=== PATIENT | female | born 1940 | race Caucasian/White ===

== ENCOUNTER 2016-09-13 11:16 | Inpatient (IN) | payer MEDICARE ==
[2016-09-13] VITALS (9 sets, daily range): BP systolic 130–180; BP diastolic 58–76; PULSE 86–100; RESP 18–30; TEMP 97.3–98.3; O2SAT 96–98
[~2016-09-13] VITALS: Ht 154.9 cm; Wt 68.7 kg
[~2016-09-13 11:16] MED LIST: ALBU17I INH; ALPR.25 PO; ASPI81 PO; CALCTAB23 PO; CENTTAB9 PO; CLON.1 PO; CO Q100C7 PO; COZA50TA PO; DEXA2TAB10 PO; LEVE500 PO; LEVEMIR SQ; NEUR300C PO; NIFE15TA PO; SERT100 PO; SYMB160A INH; TIOT18I INH; VITA200017 PO
[2016-09-13] MEDS ORDERED: SODIUM CHLOR 0.9% 1000 ML INJ 1,000 ML IV SCH ×3 (11:28→12:36)
[2016-09-13] MEDS ORDERED: ONDANSETRON HCL 4 MG/2 ML VIAL IVP ONE (11:30)
[2016-09-13] MEDS ORDERED: INSULIN HUMAN REGULAR 1,000 UNITS/10 ML VIAL SQ ONE (11:30)
--- NOTE | 2016-09-13 11:50 | PD ---
HPI Chief Complaint: Diabetic Time Seen by Provider: 11:46 Travel History International Travel<30 days: No Contact w/Intl Traveler<30days: No Traveled to known affect area: No History of Present Illness HPI 76-year-old female that presents to the ED for evaluation of hyperglycemia. Patient apparently has been having some problems with her sugars. She has had DKA in the past. Per patient she's been feeling weak and tired and they have monitor her sugars and is being in the high 500s since yesterday. Patient has been given her insulin with minimal improvement of the sugars. She states that she feels nauseous and she has polyuria and dysuria. She does have a history of lung cancer with tumor to the brain as well. Per patient she was supposed to follow yesterday with the oncologist for this for a recheck but apparently she never did. She denies any abdominal pain or chest pain. She states that she does feel weak. She feels very thirsty. She feels dizzy and lightheaded. No blurred vision or double vision. Allergies to Fosamax and statins. She denies any headache at this time. She denies any other medical prongs. Patient was given fluids IV in the ambulance. She comes from home. She feels nauseous but she has not thrown up. PFSH Past Medical History Arthritis: Yes Anxiety: Yes Depression: Yes Cancer: Yes (MALIGNANT LUNG MASS) Cardiovascular Problems: No Chemotherapy: Yes (R/T BRAIN TUMOR) COPD: Yes Diabetes: Yes (INSULIN-CONTROLLED) Patient Takes Glucophage: No Diminished Hearing: No Endocrine: Yes GERD: Yes Glaucoma: No Genitourinary: No Headaches: Yes Hepatitis: No Hiatal Hernia: No Hypertension: Yes Immune Disorder: No Medical other: Yes (GERD; ) Musculoskeletal: Yes (ARTHRITIS) Neurologic: Yes (OCCAS HEADACHE ) Psychiatric: Yes (DEPRESSION & ANXIETY ) Respiratory: Yes Immunizations Current: No Radiation Therapy: Yes Thyroid Disease: No Tetanus Vaccination: > 5 Years Influenza Vaccination: Yes Past Surgical History Abdominal Surgery: No AICD: No Body Medical Devices: NONE EXCEPT LENS LEFT EYE ONLY Cardiac Surgery: No Ear Surgery: No Eye Surgery: Yes (LEFT EYE SURGERY) Genitourinary Surgery: No Gynecologic Surgery: No Joint Replacement: No Oral Surgery: Yes (TONSILLECTOMY) Pacemaker: No Thoracic Surgery: Yes (LUNG BIOPSY X 2 , L PARTIAL LOBECTOMY) Tonsillectomy: Yes Other Surgery: Yes (DENTAL SX; COLONOSCOPY ;T&A) Social History Alcohol Use: Yes (SOCIALLY) Tobacco Use: No (quit 2005) Substance Use: No Allergies-Medications (Allergen,Severity, Reaction): Coded Allergies: Fosamax (Verified Allergy, Severe, GI BLEED, 09/13/16) Uncoded Allergies: STATINS (Allergy, Severe, BONE PAIN, 12/23/12) Reported Meds & Prescriptions Reported Meds & Active Scripts Active Levemir Inj (Insulin Detemir) 1,000 unit/ 10 ML Vial 12 Units SQ HS 30 Days Levemir Inj (Insulin Detemir) 1,000 unit/ 10 ML Vial 30 Units SQ DAILY 30 Days Catapres (Clonidine) 0.1 Mg Tab 0.1 Mg PO Q12HR hold for sbp less 120 Xanax (Alprazolam) 0.25 Mg Tab 0.25 Mg PO BID PRN Decadron 2 mg (Dexamethasone) 2 Mg Tab 1 Tab PO Q8HR 30 Days Keppra (Levetriacetam) 500 Mg Tab 500 Mg PO Q12HR 30 Days Symbicort (Budesonide/Formoterol Fumarate) 160 Mcg/4.5 Mcg Aer 2 Puff INH Q12HR 30 Days Reported Vitamin D3 Super Strength (Cholecalciferol) 2,000 Unit Chw 2,000 Units PO DAILY Ventolin Hfa (Albuterol Sulfate) 108 Mcg/Act Aer 1 Puff INH Q4HR PRN Co [id number] M1 100 Mg Cap 100 Mg PO DAILY Calcium 500 + D+D +D Tab 1 Tab PO BID Spiriva 18 Mcg18 Mcg 18 Mcg Inhp 1 Cap INH DAILY Do Not Swallow Capsule Centrum (Multivitamins) Tab 1 Tab PO DAILY Aspirin 81 Mg Tab 81 Mg PO DAILY Review of Systems Except as stated in HPI: all other systems reviewed are Neg Physical Exam Narrative GENERAL: SKIN: Warm and dry. HEAD: Atraumatic. Normocephalic. EYES: Pupils equal and round 4 mm reactive to light and accomodation. No scleral icterus. No injection or drainage. ENT: No nasal bleeding or discharge. Mucous membranes pink and moist. Tongue is midline. No uvula deviation. NECK: Trachea midline. No JVD. CARDIOVASCULAR: Regular rate and rhythm. No murmurs, S3, S4. RESPIRATORY: No accessory muscle use. Clear to auscultation. Breath sounds equal bilaterally. GASTROINTESTINAL: Abdomen soft, non-tender, nondistended. Hepatic and splenic margins not palpable. MUSCULOSKELETAL: Extremities without clubbing, cyanosis, or edema. No obvious deformities. Full range of motion of the upper and lower extremities bilaterally. 2+ pulses bilaterally. NEUROLOGICAL: Awake and alert. No obvious cranial nerve deficits. Motor grossly within normal limits. Five out of 5 muscle strength in the arms and legs. Normal speech. PSYCHIATRIC: Appropriate mood and affect; insight and judgment normal. Data Data Last Documented VS Vital Signs Date Time Temp Pulse Resp B/P Pulse Ox O2 Delivery O2 Flow Rate FiO2 09/13/16 11:16 92 20 98 Nasal Cannula 2 09/13/16 11:16 98.1 180/72 Orders Electrocardiogram (09/13/16 11:28) Complete Blood Count With Diff (09/13/16 11:28) Ckmb (Isoenzyme) Profile (09/13/16 11:28) Troponin I (09/13/16 11:28) Urinalysis - C+S If Indicated (09/13/16 11:28) Cath For Specimen (09/13/16 11:28) Magnesium (Mg) (09/13/16 11:28) Thyroid Stimulating Hormone (09/13/16 11:28) Chest, Single Ap (09/13/16 11:28) Iv Access Insert/Monitor (09/13/16 11:28) Ecg Monitoring (09/13/16 11:28) Oximetry (09/13/16 11:28) Comprehensive Metabolic Panel (09/13/16 11:28) Lipase (09/13/16 11:28) Lactic Acid (09/13/16 11:28) Ondansetron Inj (Zofran Inj) (09/13/16 11:30) Sodium Chlor 0.9% 1000 Ml Inj (Ns 1000 M (09/13/16 11:28) Insulin Human Regular Inj (Novolin R Inj (09/13/16 11:30) Beta Hydroxybutyrate (Acetone) (09/13/16 11:39) Blood Gas Venous (Vbg) (09/13/16 11:39) Urine Culture (09/13/16 11:25) Sodium Chlor 0.9% 1000 Ml Inj (Ns 1000 M (09/13/16 12:36) ^ Scrap Breaker / Telemetry (09/13/16 12:36) ^ Insert Iv (09/13/16 12:36) Diet Npo (09/13/16 Lunch) Sodium Chlor 0.9% 1000 Ml Inj (Ns 1000 M (09/13/16 12:36) Dext 5%-Nacl 0.9% 1000 Ml Inj (D5w-Ns 10 (09/13/16 12:36) Insulin Regular (Iv Infusion) (Novolin R (09/13/16 12:45) Potassium Chlor 40 Meq Premix (Kcl 40 Me (09/13/16 12:45) Potassium Chlor 40 Meq Premix (Kcl 40 Me (09/13/16 12:45) Potassium Chlor 20 Meq Premix (Kcl 20 Me (09/13/16 12:45) Potassium Chlor 20 Meq Premix (Kcl 20 Me (09/13/16 12:45) Potassium Chlor 20 Meq Premix (Kcl 20 Me (09/13/16 12:45) Potassium Chlor 20 Meq Premix (Kcl 20 Me (09/13/16 12:45) Potassium Chlor 20 Meq Premix (Kcl 20 Me (09/13/16 12:45) Potassium Chlor 20 Meq Premix (Kcl 20 Me (09/13/16 12:45) Sodium Bicarbonate 8.4% Inj (Sodium Bica (09/13/16 12:45) Sodium Bicarbonate 8.4% Inj (Sodium Bica (09/13/16 12:45) Sodium Phosphate Inj (Sodium Phosphate I (09/13/16 12:45) Hemoglobin (Hgb) A1c (09/13/16 12:36) Basic Metabolic Panel (Bmp) (09/13/16 17:36) Basic Metabolic Panel (Bmp) (09/13/16 23:36) Basic Metabolic Panel (Bmp) (09/14/16 05:36) Basic Metabolic Panel (Bmp) (09/14/16 11:36) Magnesium (Mg) (09/13/16 17:36) Magnesium (Mg) (09/13/16 23:36) Magnesium (Mg) (09/14/16 05:36) Magnesium (Mg) (09/14/16 11:36) Phosphorus (Po4) (09/13/16 17:36) Phosphorus (Po4) (09/13/16 23:36) Phosphorus (Po4) (09/14/16 05:36) Phosphorus (Po4) (09/14/16 11:36) Beta Hydroxybutyrate (Acetone) (09/13/16 23:36) Beta Hydroxybutyrate (Acetone) (09/14/16 11:36) Labs Laboratory Tests Test 09/13/16 09/13/16 09/13/16 11:25 11:35 12:10 White Blood Count 14.3 TH/MM3 Red Blood Count 3.75 MIL/MM3 Hemoglobin 11.9 GM/DL Hematocrit 36.1 % Mean Corpuscular Volume 96.2 FL Mean Corpuscular Hemoglobin 31.7 PG Mean Corpuscular Hemoglobin 32.9 % Concent Red Cell Distribution Width 14.3 % Platelet Count 322 TH/MM3 Mean Platelet Volume 8.7 FL Neutrophils (%) (Auto) 91.9 % Lymphocytes (%) (Auto) 5.4 % Monocytes (%) (Auto) 1.5 % Eosinophils (%) (Auto) 0.1 % Basophils (%) (Auto) 1.1 % Neutrophils # (Auto) 13.2 TH/MM3 Lymphocytes # (Auto) 0.8 TH/MM3 Monocytes # (Auto) 0.2 TH/MM3 Eosinophils # (Auto) 0.0 TH/MM3 Basophils # (Auto) 0.2 TH/MM3 CBC Comment DIFF FINAL Differential Comment Urine Color LIGHT-YELLOW Urine Turbidity CLEAR Urine pH 5.5 Urine Specific [place] 1.020 Urine Protein 100 mg/dL Urine Glucose (UA) 1000 mg/dL Urine Ketones 150 mg/dL Urine Occult Blood NEG Urine Nitrite NEG Urine Bilirubin NEG Urine Urobilinogen LESS THAN 2.0 MG/DL Urine Leukocyte Esterase NEG Urine WBC 1 /hpf Urine Squamous Epithelial <1 /hpf Cells Urine Bacteria MOD /hpf Microscopic Urinalysis Comment CATH-CULTURE IND Sodium Level 136 MEQ/L Potassium Level 5.1 MEQ/L Chloride Level 98 MEQ/L Carbon Dioxide Level 16.3 MEQ/L Anion Gap 22 MEQ/L Blood Urea Nitrogen 32 MG/DL Creatinine 1.11 MG/DL Estimat Glomerular Filtration 48 ML/MIN Rate Random Glucose 536 MG/DL Calcium Level 9.2 MG/DL Magnesium Level 1.9 MG/DL Total Bilirubin 0.7 MG/DL Aspartate Amino Transf 29 U/L (AST/SGOT) Alanine Aminotransferase 19 U/L (ALT/SGPT) Alkaline Phosphatase 140 U/L Total Creatine Kinase 78 U/L Troponin I LESS THAN 0.02 NG/ML Total Protein 7.2 GM/DL Albumin 3.0 GM/DL Lipase 58 U/L Thyroid Stimulating Hormone 0.651 uIU/ML 3rd Gen B-Hydroxybutyrate 9.69 MMOL/L Lactic Acid Level 1.3 mmol/L Blood Gas Puncture Site LINE Blood Gas Patient Temperature 98.6 Venous Blood pH 7.12 Venous Blood Partial Pressure 47 mmHg CO2 Venous Blood Partial Pressure 57 mmHg O2 Venous Blood HCO3 15 mmol/L Venous Blood Oxygen Saturation 79 % Venous Blood Oxygen Content 12.8 Vol % Venous Blood Base Excess -12.7 mmol/L MDM Medical Decision Making Medical Screen Exam Complete: Yes Emergency Medical Condition: Yes Medical Record Reviewed: Yes Interpretation(s) CBC & BMP Diagram 09/13/16 11:25 CXR negative LFTS WNL Lipase WNL acetone elevated at 8. ABG shows metabolic acidosis troponin and CKMB negative lactic acid WNL Differential Diagnosis DKA versus hyperglycemia versus sepsis versus hypertensive emergency versus less likely ACS versus acute abdomen Narrative Course 76-year-old female that presents to the ED for evaluation of elevated sugars. Patient was properly examined and was found to have signs and symptoms consistent appears to be hyperglycemia. Concern for diabetic ketoacidosis. Labs and imaging ordered. Patient was given IV fluids and 10 units of insulin SQ. case was discussed with my attending who recommends DKA protocol. Labs and imaging did show signs of DKA including metabolic acidosis, increasing in gap and elevated blood sugars. Patient does have all taken and some bacteria in the urine but no sign of other disease. Lactic acid was within normal limits. Unclear as to the cause of the DKA but could be possible to the viral infection as patient did complain of some nausea as well as diarrhea but unclear at this time is related to the DKA. DKA protocol was started with fluids as well as insulin started as well. Patient was told for pertinent findings and recommendation for admission and she agrees. My attending recommends admission. Patient is [facility]. Dr Molina was contacted and agrees to admission. Procedures EKG Prior to Arrival: No Diagnosis Primary Impression: DKA (diabetic ketoacidoses) Qualified Code: E13.10 - Diabetic ketoacidosis without coma associated with type 2 diabetes mellitus Admitting Information Admitting Physician Requests: Admit Luan Noland Sep 13, 2016 11:50 Luan Noland Sep 13, 2016 11:50
[2016-09-13 11:53] LABS: AUTOMATED NEUTROPHIL # 13.2 TH/MM3 (1.8-7.7); BASOPHIL # 0.2 TH/MM3 (0-0.2); BASOPHIL % 1.1 % (0.0-2.0); EOSINOPHIL % 0.1 % (0.0-4.0); HEMATOCRIT 36.1 % (35.0-46.0); HEMO FLAGS DIFF FINAL; LYMPH % 5.4 % (9.0-44.0); LYMPHOCYTE # 0.8 TH/MM3 (1.0-4.8); MEAN CELL VOLUME 96.2 FL (80.0-100.0); MEAN CORPUSCULAR HEMOGLOBIN 31.7 PG (27.0-34.0); MEAN CORPUSCULAR HGB CONC 32.9 % (32.0-36.0); MONO % 1.5 % (0.0-8.0); NEUT % 91.9 % (16.0-70.0); PLATELET COUNT 322 TH/MM3 (150-450); RED BLOOD COUNT 3.75 MIL/MM3 (4.00-5.30); RED CELL DISTRIBUTION WIDTH 14.3 % (11.6-17.2); WHITE BLOOD COUNT 14.3 TH/MM3 (4.0-11.0)
--- NOTE | 2016-09-13 11:58 | RADRPT ---
EXAM DATE/TIME: 09/13/2016 11:37 [facility] COMPARISON: CHEST SINGLE AP, February 19, 2013, 14:35. CHEST SINGLE AP, July 18, 2016, 19:38. CT BRAIN W/O CONT RAST, July 18, 2016, 20:38. INDICATIONS : Shortness of breath. Vomiting, incontinence, MEDICAL HISTORY : Carcinoma, lung. Hypertension. Diabetes mellitus type 2 SURGICAL HISTORY : Part of left lung removed. ENCOUNTER: Initial ACUITY: 3 days PAIN SCORE: 0/10 LOCATION: Bilateral chest FINDINGS: Single AP view of the thorax demonstrate blunting of the left costophrenic angle. The remainder of th e lungs are well inflated and clear. Heart size is normal. Pulmonary vasculature is normal in caliber . Osseous structures are unremarkable. CONCLUSION: Blunting of the left costophrenic angle which may represent scarring versus small ple ural effusion. Otherwise unremarkable exam. Alberta Zurita MD on September 13, 2016 at 11:55 Board Certified Radiologist. This report was verified electronically.
[2016-09-13 11:59] LABS: BACTERIA, URINE MOD /hpf; BLOOD, URINE NEG (NEG); GLUCOSE,URINE 1000 mg/dL (NEG); KETONE, URINE 150 mg/dL (NEG); NITRITE,URINE NEG (NEG); PH, URINE 5.5 (5.0-8.5); SQUAMOUS EPITHELIAL CELL URINE <1 /hpf (0-5); URINE COLOR LIGHT-YELLOW (YELLW/STRAW)
[2016-09-13 12:02] LABS: COMMENT (UR) CATH-CULTURE IND; CULTURE IF INDICATED CATH CULTURE IND
[2016-09-13 12:24] LABS: BLOOD GAS VENOUS BASE EXCESS -12.7 mmol/L (-2-2); BLOOD GAS VENOUS HCO3 15 mmol/L (22-26); BLOOD GAS VENOUS O2 CONTENT 12.8 Vol % (9.0-17.0); BLOOD GAS VENOUS O2 HGB SAT 79 % (70-76); BLOOD GAS VENOUS PCO2 47 mmHg (44-48); BLOOD GAS VENOUS PO2 57 mmHg (35-40); BLOOD GAS VENOUS pH 7.12 (7.360-7.400); TEMP CORR TO 98.6
[2016-09-13 12:25] LABS: CRITICAL VALUE YES; DRAW SITE LINE; STAT YES
[2016-09-13 12:29] LABS: ALKALINE PHOSPHATASE 140 U/L (45-117); ALT (GPT) 19 U/L (10-53); ANION GAP 22 MEQ/L (5-15); AST (GOT) 29 U/L (15-37); BICARBONATE 16.3 MEQ/L (21.0-32.0); BLOOD UREA NITROGEN 32 MG/DL (7-18); CHLORIDE 98 MEQ/L (98-107); GLOMERULAR FILTRATION RATE 48 ML/MIN (>89); MAGNESIUM 1.9 MG/DL (1.5-2.5); SODIUM (NA) 136 MEQ/L (136-145); TOTAL BILIRUBIN ADULT 0.7 MG/DL (0.2-1.0)
[2016-09-13 12:34] LABS: CREATINE KINASE 78 U/L (26-192); POTASSIUM 5.1 MEQ/L (3.5-5.1)
[2016-09-13] MEDS ORDERED: SODIUM BICARBONATE 8.4% SOLN 50 MEQ/50 ML VIAL IV PRN ×2 (12:45)
[2016-09-13] MEDS ORDERED: POTASSIUM CHLOR 40 MEQ PREMIX 100 ML IV PRN ×2 (12:45)
[2016-09-13] MEDS ORDERED: POTASSIUM CHLOR 20 MEQ PREMIX 100 ML IV PRN ×6 (12:45)
[2016-09-13] MEDS ORDERED: INSULIN REGULAR (IV INFUSION) 100 UNITS in SODIUM CHLORIDE 0.9% INJ 99 ML IV SCH (12:45)
[2016-09-13] MEDS ORDERED: SODIUM PHOSPHATE INJ 15 MMOL in SODIUM CHLORIDE 0.9% INJ 100 ML IV PRN (12:45)
[2016-09-13] MEDS ORDERED: LEVEMIR SQ ×2 (13:12)
[2016-09-13] MEDS ORDERED: LEVE500 PO (13:13)
[2016-09-13] MEDS ORDERED: NOVOLOGP2 SQ (13:15)
[2016-09-13] MEDS ORDERED: TRAD5TAB PO (13:15)
--- NOTE | 2016-09-13 13:42 | HHI.HP ---
HPI Service [facility] Hospitalists Primary Care Physician Rom Argueta M.D. Admission Diagnosis DKA, hyperglycemia Chief Complaint: Nausea/vomiting Travel History International Travel<30 Days: No Contact w/Intl Traveler <30 Da: No Traveled to Known Affected Are: No History of Present Illness Ms. Thomas is a pleasant 76 y/o WF with hx of SCC of the lung s/p surgery/ chemo who was found to have new pulmonary and brain lesions in 2016 s/p XRT, diabetes mellitus, and HTN who presented to the ED at [facility] on 09/13/16 with hyperglycemia. Patient has had DKA in the past which was attributed to steroid use. She states that she has been feeling weak and tired and yesterday her blood sugars were as high as 500s. Patient has been taking her insulin with minimal improvement of the sugars, Levemir 35units in AM and 15 units in PM and NovoLog SSI. This morning she started having nausea and vomiting with increased weakness and feeling unsteady on her feet. She states that has polyuria and urinary incontinence. She denies any diarrhea, fever/chills, or respiratory symptoms. Pts blood sugars at admission were int he 500's and pt has been started on the insulin gtt and protocol and will be admitted to [facility]. Review of Systems Constitutional: DENIES: Fever, Chills Endocrine: COMPLAINS OF: Polydipsia Eyes: DENIES: Vision loss Ears, nose, mouth, throat: DENIES: Hearing loss Respiratory: DENIES: Cough, Shortness of breath Cardiovascular: DENIES: Chest pain, Palpitations, Lower Extremity Edema Gastrointestinal: COMPLAINS OF: Nausea, Vomiting, DENIES: Abdominal pain, Diarrhea Genitourinary: COMPLAINS OF: Urinary incontinence, DENIES: Urinary frequency, Hematuria, Dysuria Integumentary: DENIES: Rash Neurologic: DENIES: Headache Psychiatric: DENIES: Confusion Past Family Social History Past Medical History SSC of the lung, originally diagnosed in 2012 s/p left upper lobectomy with mediastinal and hilar lymph node sampling. Subsequently received systemic chemo. In September 2015 pt was found to have a hypermetabolic pulmonary nodule which was treated with SBRT. In 06/2016 she was found to have a solitary brain mass in the left frontal lobe and was treated with external beam RT in 07/2016. Pt had been on Decadron for the vasogenic edema. Anxiety Arthritis COPD Diabetes mellitus, type 2 Depression Hemorrhoids Hyperlipidemia HTN Inflammatory bowel disease Migraine HAs Past Surgical History Lung biopsy Thoracotomy with left lower lobe lobectomy and hilar/mediastinal lymph node samplingJune 2012 Tonsillectomy Upper endoscopy Colonoscopy 2001 Reported Medications -Xanax 0.25 Mg PO BID PRN -Novolog Inj (Insulin Aspart) 1,000 Unit/10 Ml Vial 5-10 Units SQ TIDAC Max dose at bedtime:( )units; sugars less than 70,(0) units; sugars 150-199,(5) units; sugars 200-249,(10) units; sugars 250-299,(15) units; sugars 300-349,(20)units; sugars greater than 349,(25)units -Tradjenta (Linagliptin) 5 Mg PO DAILY -Keppra 500 Mg PO Q12HR -Levemir Inj 15 Units SQ HS -Levemir Inj 35 Units SQ DAILY -Vitamin D3 Super Strength (Cholecalciferol) 2,000 Unit Chw 2,000 Units PO DAILY -Ventolin Hfa 108 Mcg/Act Aer 1 Puff INH Q4HR PRN -Spiriva 18 Mcg Inhp 1 Cap INH DAILY -Aspirin 81 Mg Tab 81 Mg PO DAILY --Nifedipine 60mg once daily --Losartan 100mg po daily --Budesonide/Formoterol Fumarate Nebulizer Q12HR ?Decadron 1 mg PO BID Allergies: Coded Allergies: Fosamax (Verified Allergy, Severe, GI BLEED, 09/13/16) Uncoded Allergies: STATINS (Allergy, Severe, BONE PAIN, 12/23/12) Family History Noncontributory Social History Hx of tobacco use, previous heavy smoker, per PCP notes [id number] history Social alcohol use No illicit street drugs Physical Exam Vital Signs Vital Signs Date Time Temp Pulse Resp B/P Pulse Ox O2 Delivery O2 Flow Rate FiO2 09/13/16 13:15 100 20 160/66 98 Nasal Cannula 2 09/13/16 11:16 92 20 98 Nasal Cannula 2 09/13/16 11:16 98 Nasal Cannula 2 09/13/16 11:16 98.1 96 20 180/72 98 09/13/16 11:16 92 20 180/72 98 Nasal Cannula 2 Physical Exam GENERAL: This is a well-nourished, well-developed patient, in no apparent distress. HEENT: Atraumatic. Normocephalic. No temporal or scalp tenderness. No scleral icterus. Airway patent. NECK: Trachea midline, supple, nontender. CARDIO: Regular. RESP: CTA bilaterally. No wheezes, rales, or rhonchi. ABD: +BS, soft, non-tender, nondistended. EXT: Extremities without clubbing, cyanosis, or edema. NEURO: Awake and alert. Motor and sensory grossly within normal limits. Normal speech. Laboratory Laboratory Tests Test 09/13/16 09/13/16 09/13/16 11:25 11:35 12:10 White Blood Count 14.3 Red Blood Count 3.75 Hemoglobin 11.9 Hematocrit 36.1 Mean Corpuscular Volume 96.2 Mean Corpuscular Hemoglobin 31.7 Mean Corpuscular Hemoglobin 32.9 Concent Red Cell Distribution Width 14.3 Platelet Count 322 Mean Platelet Volume 8.7 Neutrophils (%) (Auto) 91.9 Lymphocytes (%) (Auto) 5.4 Monocytes (%) (Auto) 1.5 Eosinophils (%) (Auto) 0.1 Basophils (%) (Auto) 1.1 Neutrophils # (Auto) 13.2 Lymphocytes # (Auto) 0.8 Monocytes # (Auto) 0.2 Eosinophils # (Auto) 0.0 Basophils # (Auto) 0.2 CBC Comment DIFF FINAL Differential Comment Urine Color LIGHT-YELLOW Urine Turbidity CLEAR Urine pH 5.5 Urine Specific [place] 1.020 Urine Protein 100 Urine Glucose (UA) 1000 Urine Ketones 150 Urine Occult Blood NEG Urine Nitrite NEG Urine Bilirubin NEG Urine Urobilinogen LESS THAN 2.0 Urine Leukocyte Esterase NEG Urine WBC 1 Urine Squamous Epithelial <1 Cells Urine Bacteria MOD Microscopic Urinalysis Comment CATH-CULTURE IND Sodium Level 136 Potassium Level 5.1 Chloride Level 98 Carbon Dioxide Level 16.3 Anion Gap 22 Blood Urea Nitrogen 32 Creatinine 1.11 Estimat Glomerular Filtration 48 Rate Random Glucose 536 Calcium Level 9.2 Magnesium Level 1.9 Total Bilirubin 0.7 Aspartate Amino Transf 29 (AST/SGOT) Alanine Aminotransferase 19 (ALT/SGPT) Alkaline Phosphatase 140 Total Creatine Kinase 78 Troponin I LESS THAN 0.02 Total Protein 7.2 Albumin 3.0 Lipase 58 Thyroid Stimulating Hormone 0.651 3rd Gen B-Hydroxybutyrate 9.69 Lactic Acid Level 1.3 Blood Gas Puncture Site LINE Blood Gas Patient Temperature 98.6 Venous Blood pH 7.12 Venous Blood Partial Pressure 47 CO2 Venous Blood Partial Pressure 57 O2 Venous Blood HCO3 15 Venous Blood Oxygen Saturation 79 Venous Blood Oxygen Content 12.8 Venous Blood Base Excess -12.7 Date/Time Procedure Status Source Growth 09/13/16 11:25 Urine Culture Received Urine Catheterized Urine Pending Result Diagram: 09/13/16 1125 09/13/16 1125 Imaging Last Impressions Chest X-Ray 09/13/16 1128 Signed Impressions: Service Date/Time: Tuesday, September 13, 2016 11:37 - CONCLUSION: Blunting of the left costophrenic angle which may represent scarring versus small pleural effusion. Otherwise unremarkable exam. Alberta Zurita MD Septic Shock Reassessment Heart: Regular rate and rhythm Lungs: Clear Skin: Warm Peripheral Pulses: Bounding Right Radial Bounding Left Radial Bounding Right Popliteal Bounding Left Popliteal Bounding Right Dorsalis Pedis Bounding Left Dorsalis Pedis Bounding Right Posterior Tibial Bounding Left Posterior Tibial Capillary Refill: <2 seconds Assessment and Plan Problem List: (1) DKA (diabetic ketoacidoses) Status: Acute Plan: - Pt admitted in DKA with nausea/vomiting. - Blood glucose in the ED was 536 and has been started on Insulin gtt and electrolyte protocol - Pt to be admitted to IM for close monitoring - IVF - It is unclear if the pt is still on Decadron as she was on a tapering dose in August per outpt records - [place] cath - Supportive care - DVT prophylaxis (2) HTN (hypertension) Status: Chronic Plan: - Cont. home meds - Clonidine and Vasotec PRN (3) Metastatic cancer to brain Status: Chronic Plan: - SSC of the lung, originally diagnosed in 2012 s/p left upper lobectomy with mediastinal and hilar lymph node sampling. Subsequently received systemic chemo. In September 2015 pt was found to have a hypermetabolic pulmonary nodule which was treated with SBRT. In 06/2016 she was found to have a solitary brain mass in the left frontal lobe and was treated with external beam RT in 07/2016. Pt had been on Decadron for the vasogenic edema. - Pt follows with Dr. Palomino as an outpt (4) DM2 (diabetes mellitus, type 2) Status: Chronic Plan: - See above. (5) COPD (chronic obstructive pulmonary disease) Status: Chronic Plan: - Cont. 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 Assessment and Plan Patient examined. Assessment and plan formulated with Lawanda Roldan PA-C. I agree with the above. scc of lung metastasized to brain. dka. cont insulin gtt and dka protocol. will resume sq levemir and ssi when ag closes. replace lytes per protocol. Physician Certification 2 Midnight Certification Type: Admission for Inpatient Services Order for Inpatient Services The services are ordered in accordance with Medicare regulations or non- Medicare payer requirements, as applicable. In the case of services not specified as inpatient-only, they are appropriately provided as inpatient services in accordance with the 2-midnight benchmark. Estimated LOS (days): 3 3 days is the estimated time the patient will need to remain in the hospital, assuming treatment plan goals are met and no additional complications. Post-Hospital Plan: Not yet determined Problem Qualifiers (1) DKA (diabetic ketoacidoses): Qualified Code: E13.10 - Diabetic ketoacidosis without coma associated with type 2 diabetes mellitus Lawanda Roldan Sep 13, 2016 13:42 Jann Lang MD Sep 13, 2016 21:13
[2016-09-13] MEDS ORDERED: COQ-100C2 PO (13:47)
[2016-09-13] MEDS ORDERED: SPIRCAP INH (13:47)
[2016-09-13] MEDS ORDERED: VENTAER INH (13:47)
[2016-09-13] MEDS ORDERED: ASPI81TA81 PO (13:47)
[2016-09-13] MEDS ORDERED: SYMB160A INH (13:49)
[2016-09-13] MEDS ORDERED: VITA200012 PO (13:49)
[2016-09-13] MEDS ORDERED: CALC1TAB42 PO (13:53)
[2016-09-13] MEDS ORDERED: RESP: ALBUTEROL 2.5 MG/IPRATROPIUM 0.5 MG NEB (PRN) NEB (15:00)
[2016-09-13] MEDS: DEXT 5%-NACL 0.9% 1000 ML INJ 1,000 ML IV SCH (15:40)
[2016-09-13] MEDS ORDERED: LOSA50TA PO (16:28)
[2016-09-13] MEDS ORDERED: NIFE1TAB86 PO (16:28)
[2016-09-13 19:19] LABS: BICARBONATE 23.5 MEQ/L (21.0-32.0); MAGNESIUM 1.5 MG/DL (1.5-2.5); POTASSIUM 3.3 MEQ/L (3.5-5.1)
[2016-09-13] MEDS: ALPRAZolam 0.25 MG TAB PO PRN (21:33)
[2016-09-13] MEDS: levETIRAcetam 500 MG TAB PO SCH (21:33)
[2016-09-13] MEDS: LOSARTAN 50 MG TAB PO SCH (21:35)
[2016-09-14] VITALS (14 sets, daily range): BP systolic 119–180; BP diastolic 51–75; PULSE 88–98; RESP 26–30; TEMP 98.1–99.1; O2SAT 98–100
[2016-09-14] MEDS: DEXT 5%-NACL 0.9% 1000 ML INJ 1,000 ML IV SCH (00:13)
[2016-09-14 00:53] LABS: ANION GAP 8 MEQ/L (5-15); BICARBONATE 24.7 MEQ/L (21.0-32.0); BLOOD UREA NITROGEN 25 MG/DL (7-18); CHLORIDE 107 MEQ/L (98-107); GLOMERULAR FILTRATION RATE 58 ML/MIN (>89); MAGNESIUM 1.5 MG/DL (1.5-2.5); POTASSIUM 3.1 MEQ/L (3.5-5.1); SODIUM (NA) 140 MEQ/L (136-145)
[2016-09-14 00:54] LABS: BETA-HYDROXYBUTYRATE 0.19 MMOL/L (0.00-0.39)
[2016-09-14] MEDS ORDERED: ICU - SODIUM PHOSPHATE 30 MMOL/NS 250 ML IV PRN ×2 (01:45)
[2016-09-14] MEDS ORDERED: ICU - MAGNESIUM OXIDE 400 MG TAB PO PRN (01:45)
[2016-09-14] MEDS ORDERED: ICU - POTASSIUM PHOSPHATE 30 MMOL/NS 250 ML IV PRN ×2 (01:45)
[2016-09-14] MEDS ORDERED: ICU - MAGNESIUM SULFATE 2 GM/NS 100 ML IV PRN ×2 (01:45)
[2016-09-14] MEDS ORDERED: ICU - POTASSIUM CHLORIDE 10% LIQUID 40 MEQ/30 ML CUP PO PRN (01:45)
[2016-09-14] MEDS ORDERED: ICU - POTASSIUM CHLORIDE/AQUEOUS SOLN 40 MEQ/100 ML IVPB IV PRN (01:45)
[2016-09-14] MEDS ORDERED: ICU - CALL ORDERING PHYSICIAN XX PRN (01:45)
[2016-09-14] MEDS ORDERED: ICU - MAGNESIUM SULFATE 4 GM/NS 100 ML IV PRN ×2 (01:45)
[2016-09-14] MEDS ORDERED: ICU - POTASSIUM PHOSPHATE MONOBASIC 500 MG TAB PO/TUBE PRN (01:45)
[2016-09-14] MEDS ORDERED: ICU - D/C ICU ELECTROLYTE ORDERS XX PRN (01:45)
[2016-09-14] MEDS: ICU - POTASSIUM CHLORIDE/AQUEOUS SOLN 20 MEQ/100 ML IVPB IV PRN ×4 (01:58→10:59)
[2016-09-14] MEDS ORDERED: DEXTROSE 50% IN WATER 50 ML VIAL(D50) IV PUSH PRN (02:00)
[2016-09-14] MEDS ORDERED: GLUCAGON 1 MG/ML VIAL OTHER PRN (02:00)
[2016-09-14] MEDS: MEDIUM DOSE INSULIN NOVOLOG SUPPLEMENTAL SCALE SQ SCH ×3 (03:28→11:52)
[2016-09-14] MEDS: BUDESONIDE-FORMOTEROL 160/4.5 MCG INHALER INH SCH ×3 (03:28→20:16)
[2016-09-14] MEDS: ENALAPRILAT 1.25 MG/ML VIAL IV PUSH PRN ×2 (05:07→09:16)
[2016-09-14] MEDS ORDERED: INSULIN DETEMIR 100 UNITS/ML VIAL SQ SCH ×3 (08:00→21:00)
[2016-09-14] MEDS: LOSARTAN 50 MG TAB PO SCH ×2 (08:14→20:15)
[2016-09-14] MEDS: ASPIRIN EC 81 MG TABEC PO SCH (08:14)
[2016-09-14] MEDS: levETIRAcetam 500 MG TAB PO SCH ×2 (08:14→20:15)
[2016-09-14] MEDS: NIFEdipine 60 MG SUSTAINED RELEASE TAB PO SCH (08:14)
--- NOTE | 2016-09-14 08:52 | HHI.PR ---
Subjective Remarks seems more sob. Objective Vitals heart reg lung decreased air entry abd s/nt ext no edema mild labored breathing. Vital Signs Date Time Temp Pulse Resp B/P Pulse Ox O2 Delivery O2 Flow Rate FiO2 09/14/16 07:49 100 Nasal Cannula 2.00 09/14/16 06:00 92 09/14/16 04:00 98.5 98 27 171/67 99 09/14/16 04:00 98 09/14/16 02:00 93 09/14/16 00:00 88 09/14/16 00:00 98.6 88 29 163/70 98 09/13/16 22:00 92 09/13/16 20:18 97 Nasal Cannula 2.00 09/13/16 20:00 86 09/13/16 20:00 98.3 89 30 163/65 96 09/13/16 18:33 97.3 91 22 157/66 97 09/13/16 16:15 90 18 133/76 98 Nasal Cannula 2 09/13/16 15:15 90 18 131/61 98 Nasal Cannula 2 09/13/16 14:15 100 20 130/58 98 Nasal Cannula 2 09/13/16 13:15 100 20 160/66 98 Nasal Cannula 2 09/13/16 11:16 92 20 98 Nasal Cannula 2 09/13/16 11:16 98 Nasal Cannula 2 09/13/16 11:16 98.1 96 20 180/72 98 09/13/16 11:16 92 20 180/72 98 Nasal Cannula 2 09/13/16 09/13/16 09/14/16 15:00 23:00 07:00 Intake Total 1592 ml 884 ml Output Total 1550 ml 550 ml Balance 42 ml 334 ml Intake Oral 240 ml 240 ml IV Total 1352 ml 644 ml Packed Cells 0 ml Output Urine Total 1550 ml 550 ml # Voids 0 # Bowel Movements 0 Result Diagram: 09/13/16 1125 09/14/16 0018 Imaging Last Impressions Chest X-Ray 09/13/161127 Signed Impressions: Service Date/Time: Tuesday, September 13, 2016 11:37 - CONCLUSION: Blunting of the left costophrenic angle which may represent scarring versus small pleural effusion. Otherwise unremarkable exam. Alberta Zurita MD A/P Problem List: (1) DKA (diabetic ketoacidoses) Status: Acute Plan: - Pt admitted in DKA with nausea/vomiting. - Blood glucose in the ED was 536 and has been started on Insulin gtt and electrolyte protocol - [place] [facility] [place] - It is unclear if the pt is still on Decadron as she was on a tapering dose in August per outpt records dka resolving and insulin gtt off resume levemir and ssi diabetic diet. d/c ivf pt with more sob and probably fluid overload. get cxr. iv lasix and nebs. cxr today she is very clear that her with is for dnr. bipap prn (2) HTN (hypertension) Status: Chronic Plan: - Cont. home meds - Clonidine and Vasotec PRN (3) Metastatic cancer to brain Status: Chronic Plan: - SSC of the lung, originally diagnosed in 2012 s/p left upper lobectomy with mediastinal and hilar lymph node sampling. Subsequently received systemic chemo. In September 2015 pt was found to have a hypermetabolic pulmonary nodule which was treated with SBRT. In 06/2016 she was found to have a solitary brain mass in the left frontal lobe and was treated with external beam RT in 07/2016. Pt had been on Decadron for the vasogenic edema. - Pt follows with Dr. Palomino as an outpt (4) DM2 (diabetes mellitus, type 2) Status: Chronic Plan: - See above. (5) COPD (chronic obstructive pulmonary disease) Status: Chronic Plan: - Cont. 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 Problem Qualifiers (1) DKA (diabetic ketoacidoses): Qualified Code: E13.10 - Diabetic ketoacidosis without coma associated with type 2 diabetes mellitus Jann Lang MD Sep 14, 2016 08:52
[2016-09-14] MEDS ORDERED: FUROSEMIDE 40 MG/4 ML VIAL IV PUSH ONE (09:00)
[2016-09-14] MEDS ORDERED: RESP: ALBUTEROL 2.5 MG/IPRATROPIUM 0.5 MG NEB (SCH) NEB ONE (09:00)
[2016-09-14] MEDS: TIOTROPIUM BROMIDE 18 MCG INH INH SCH (09:19)
--- NOTE | 2016-09-14 09:46 | RADRPT ---
EXAM DATE/TIME: 09/14/2016 08:55 [facility] COMPARISON: CHEST SINGLE AP, September 13, 2016, 11:37. INDICATIONS : Shortness of breath, chest pain. MEDICAL HISTORY : Carcinoma, lung. Hypertension. Diabetes mellitus type 2 SURGICAL HISTORY : Part of left lung removed ENCOUNTER: Subsequent ACUITY: 4 - 6 days PAIN SCORE: 10/10 LOCATION: Bilateral chest FINDINGS: A single view of the chest demonstrates bilateral pleural effusions left greater than right.. Osseou s structures are intact. CONCLUSION: Bilateral pleural effusions left greater than right clearly larger than on the previous days film Francis Frey MD on September 14, 2016 at 9:43 Board Certified Radiologist. This report was verified electronically.
[2016-09-14 10:41] LABS: HEMOGLOBIN A1a 1.1 %; HEMOGLOBIN A1b 2.5 %; HEMOGLOBIN LA1C 2.3 %; HEMOGLOBIN P3 5.2 %
[2016-09-14] MEDS: RESP: ALBUTEROL 2.5 MG/IPRATROPIUM 0.5 MG NEB (SCH) NEB ×3 (11:22→20:27)
[2016-09-14 12:16] LABS: BICARBONATE 22.5 MEQ/L (21.0-32.0); MAGNESIUM 1.6 MG/DL (1.5-2.5); POTASSIUM 4.2 MEQ/L (3.5-5.1)
[2016-09-14] MEDS: ALPRAZolam 0.25 MG TAB PO PRN ×2 (13:24→20:43)
--- NOTE | 2016-09-14 14:24 | EKG ---
Date Performed: 09/13/2016 Time Performed: 11:50:30 PTAGE: 76 years EKG: Sinus rhythm WITH OCCASIONAL SUPRAVENTRICULAR PREMATURE COMPLEXES MINIMAL ST DEPRESSION BORDERLINE ECG Compared t o prior tracing no significant change PREVIOUS TRACING : 06/15/2016 13.34 DOCTOR: Kamari Zavala Interpretating Date/Time 09/14/2016 14:22:50
[2016-09-14] MEDS: INSULIN ASPART SUPPLEMENTAL SCALE SQ SCH ×2 (16:26→20:16)
[2016-09-14] MEDS ORDERED: FUROSEMIDE 20 MG/2 ML VIAL IV PUSH ONE (19:30)
[2016-09-14 20:12] LABS: MAGNESIUM 1.6 MG/DL (1.5-2.5); POTASSIUM 3.3 MEQ/L (3.5-5.1)
[2016-09-14] MEDS: FUROSEMIDE 20 MG/2 ML VIAL IV PUSH SCH (20:15)
[2016-09-15] VITALS (14 sets, daily range): BP systolic 109–172; BP diastolic 55–98; PULSE 82–105; RESP 22–30; TEMP 97.3–98.9; O2SAT 96–100
[2016-09-15] MEDS: INSULIN ASPART SUPPLEMENTAL SCALE SQ SCH ×6 (04:00→20:00)
[2016-09-15] MEDS: ENALAPRILAT 1.25 MG/ML VIAL IV PUSH PRN (06:41)
[2016-09-15 07:31] LABS: BICARBONATE 33.1 MEQ/L (21.0-32.0); POTASSIUM 3.5 MEQ/L (3.5-5.1)
[2016-09-15] MEDS: RESP: ALBUTEROL 2.5 MG/IPRATROPIUM 0.5 MG NEB (SCH) NEB ×4 (07:52→19:42)
[2016-09-15] MEDS: INSULIN DETEMIR 100 UNITS/ML VIAL SQ SCH ×2 (08:14→12:30)
[2016-09-15] MEDS: FUROSEMIDE 20 MG/2 ML VIAL IV PUSH SCH ×2 (08:14→17:20)
[2016-09-15] MEDS: LOSARTAN 50 MG TAB PO SCH ×3 (08:15→21:23)
[2016-09-15] MEDS: levETIRAcetam 500 MG TAB PO SCH ×2 (08:15→21:22)
[2016-09-15] MEDS: ASPIRIN EC 81 MG TABEC PO SCH (08:15)
[2016-09-15] MEDS: TIOTROPIUM BROMIDE 18 MCG INH INH SCH (08:15)
[2016-09-15] MEDS: NIFEdipine 60 MG SUSTAINED RELEASE TAB PO SCH (08:15)
[2016-09-15] MEDS: BUDESONIDE-FORMOTEROL 160/4.5 MCG INHALER INH SCH ×2 (08:15→21:26)
[2016-09-15] MEDS: POTASSIUM CHLORIDE 20 MEQ CONTROLLED RELEASE TAB PO SCH ×2 (08:15→21:22)
[2016-09-15] MEDS ORDERED: POTASSIUM CHLORIDE 20 MEQ CONTROLLED RELEASE TAB PO ONE (10:00)
--- NOTE | 2016-09-15 10:01 | HHI.PR ---
Subjective Remarks looks more comfortable oriented. eating some. Objective Vitals nad heart reg lung improved air entry abd s/nt ext no edema Vital Signs Date Time Temp Pulse Resp B/P Pulse Ox O2 Delivery O2 Flow Rate FiO2 09/15/16 07:53 100 Nasal Cannula 4.00 09/15/16 06:00 82 09/15/16 04:00 98.1 90 28 172/72 99 09/15/16 04:00 89 09/15/16 02:00 91 09/15/16 00:00 90 09/15/16 00:00 98.9 90 27 160/67 100 09/14/16 22:00 94 09/14/16 20:28 100 Nasal Cannula 2.00 09/14/16 20:00 98.1 90 28 131/63 100 09/14/16 20:00 90 09/14/16 18:00 94 09/14/16 16:00 99.1 95 29 119/51 98 09/14/16 16:00 95 09/14/16 14:00 98 09/14/16 12:00 99.1 97 30 154/63 100 09/14/16 12:00 97 09/14/16 10:00 94 09/14/16 09/14/16 09/15/16 15:00 23:00 07:00 Intake Total 1581 ml 540 ml 480 ml Output Total 2075 ml 1000 ml 1000 ml Balance -494 ml -460 ml -520 ml Intake Oral 750 ml 480 ml 480 ml IV Total 831 ml 60 ml Output Urine Total 2075 ml 1000 ml 1000 ml # Bowel Movements 0 1 Result Diagram: 09/13/16 1125 09/15/16 0650 Imaging Last Impressions Chest X-Ray 09/13/16 1128 Signed Impressions: Service Date/Time: Tuesday, September 13, 2016 11:37 - CONCLUSION: Blunting of the left costophrenic angle which may represent scarring versus small pleural effusion. Otherwise unremarkable exam. Alberta Zurita MD A/P Problem List: (1) DKA (diabetic ketoacidoses) Status: Acute Plan: - Pt admitted in DKA with nausea/vomiting. - Blood glucose in the ED was 536 and has been started on Insulin gtt and electrolyte protocol - [facility] - It is unclear if the pt is still on Decadron as she was on a tapering dose in August per outpt records -dka resolving and insulin gtt off -resumed levemir and ssi on 09/14 diabetic diet. Pt was in respiratory distress on 09/14 secondary to fluid overload. This is improving with iv diuresis monitor bmp If stable today then transfer to med/surg in AM she is very clear that her with is for dnr. bipap prn increase procardia back to bid for elevation today. (2) HTN (hypertension) Status: Chronic Plan: - Cont. home meds - Clonidine and Vasotec PRN (3) Metastatic cancer to brain Status: Chronic Plan: - SSC of the lung, originally diagnosed in 2012 s/p left upper lobectomy with mediastinal and hilar lymph node sampling. Subsequently received systemic chemo. In September 2015 pt was found to have a hypermetabolic pulmonary nodule which was treated with SBRT. In 06/2016 she was found to have a solitary brain mass in the left frontal lobe and was treated with external beam RT in 07/2016. Pt had been on Decadron for the vasogenic edema. - Pt follows with Dr. Palomino as an outpt (4) DM2 (diabetes mellitus, type 2) Status: Chronic Plan: - See above. (5) COPD (chronic obstructive pulmonary disease) Status: Chronic Plan: - Cont. 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 Problem Qualifiers (1) DKA (diabetic ketoacidoses): Qualified Code: E13.10 - Diabetic ketoacidosis without coma associated with type 2 diabetes mellitus Jann Lang MD Sep 15, 2016 10:01
[2016-09-15] MEDS: cloNIDine HCL 0.1 MG TAB PO PRN (11:24)
[2016-09-15] MEDS ORDERED: NIFEdipine 60 MG SUSTAINED RELEASE TAB PO SCH (21:00)
[2016-09-15] MEDS ORDERED: INSULIN DETEMIR 100 UNITS/ML VIAL SQ SCH (21:00)
[2016-09-15] MEDS: ALPRAZolam 0.25 MG TAB PO PRN (22:16)
[2016-09-16] VITALS (14 sets, daily range): BP systolic 108–178; BP diastolic 67–85; PULSE 77–100; RESP 0–28; TEMP 97.5–98.5; O2SAT 93–97
[2016-09-16] MEDS ORDERED: LACTATED RINGER'S 1000 ML INJ 1,000 ML IV SCH (01:30)
[2016-09-16] MEDS: INSULIN ASPART SUPPLEMENTAL SCALE SQ SCH ×6 (04:00→20:20)
[2016-09-16] MEDS: RESP: ALBUTEROL 2.5 MG/IPRATROPIUM 0.5 MG NEB (SCH) NEB ×4 (07:35→20:34)
[2016-09-16 07:51] LABS: BICARBONATE 37.5 MEQ/L (21.0-32.0)
[2016-09-16] MEDS: TIOTROPIUM BROMIDE 18 MCG INH INH SCH (08:39)
[2016-09-16] MEDS: BUDESONIDE-FORMOTEROL 160/4.5 MCG INHALER INH SCH ×2 (08:39→20:20)
[2016-09-16] MEDS: FUROSEMIDE 20 MG/2 ML VIAL IV PUSH SCH (08:41)
[2016-09-16] MEDS: levETIRAcetam 500 MG TAB PO SCH ×2 (08:42→20:20)
[2016-09-16] MEDS: POTASSIUM CHLORIDE 20 MEQ CONTROLLED RELEASE TAB PO SCH (08:42)
[2016-09-16] MEDS: INSULIN DETEMIR 100 UNITS/ML VIAL SQ SCH (08:42)
[2016-09-16] MEDS: ASPIRIN EC 81 MG TABEC PO SCH (08:42)
[2016-09-16] MEDS: NIFEdipine 60 MG SUSTAINED RELEASE TAB PO SCH (08:42)
[2016-09-16] MEDS: LOSARTAN 50 MG TAB PO SCH ×2 (08:42→20:20)
--- NOTE | 2016-09-16 12:10 | HHI.PR ---
Subjective Remarks Pt complains of a lot of pelvic/bladder pressure since the catheter was placed She has had good UOP having over 1600cc out overnight. Afebrile Blood sugars during the night and this morning were low Objective Vitals Vital Signs Date Time Temp Pulse Resp B/P Pulse Ox O2 Delivery O2 Flow Rate FiO2 09/16/16 10:00 86 09/16/16 08:00 97.5 99 24 176/79 96 09/16/16 08:00 81 09/16/16 07:36 95 Nasal Cannula 2.00 09/16/16 06:00 79 09/16/16 04:00 80 09/16/16 04:00 98.5 77 22 164/70 97 09/16/16 02:00 84 09/16/16 00:00 98.0 90 20 108/72 94 09/16/16 00:00 90 09/15/16 22:00 94 09/15/16 20:12 98 Nasal Cannula 2.00 09/15/16 20:00 92 09/15/16 20:00 97.3 92 22 124/85 97 09/15/16 18:00 105 09/15/16 16:00 97.8 94 30 121/58 98 09/15/16 16:00 94 09/15/16 14:00 101 09/15/16 09/15/16 09/16/16 15:00 23:00 07:00 Intake Total 1000 ml 420 ml 240 ml Output Total 1550 ml 1200 ml 1100 ml Balance -550 ml -780 ml -860 ml Intake Oral 1000 ml 420 ml 240 ml IV Total 0 ml 0 ml Output Urine Total 1550 ml 1200 ml 1100 ml # Bowel Movements 0 0 0 Result Diagram: 09/13/16 1125 09/16/16 0624 Other Results Laboratory Tests Test 09/14/16 09/15/16 09/16/16 18:56 06:50 06:24 Potassium Level 3.3 MEQ/L 3.5 MEQ/L 4.0 MEQ/L Phosphorus Level 2.1 MG/DL Magnesium Level 1.6 MG/DL Sodium Level 144 MEQ/L 142 MEQ/L Chloride Level 103 MEQ/L 99 MEQ/L Carbon Dioxide Level 33.1 MEQ/L 37.5 MEQ/L Anion Gap 8 MEQ/L 6 MEQ/L Blood Urea Nitrogen 15 MG/DL 16 MG/DL Creatinine 0.75 MG/DL 0.68 MG/DL Estimat Glomerular Filtration 75 ML/MIN 84 ML/MIN Rate Random Glucose 99 MG/DL 69 MG/DL Calcium Level 8.4 MG/DL 9.4 MG/DL Imaging Last Impressions Chest X-Ray 09/14/16 0000 Signed Impressions: Service Date/Time: Wednesday, September 14, 2016 08:55 - CONCLUSION: Bilateral pleural effusions left greater than right clearly larger than on the previous days film Francis Frey MD Last Impressions Chest X-Ray 09/13/16 1128 Signed Impressions: Service Date/Time: Tuesday, September 13, 2016 11:37 - CONCLUSION: Blunting of the left costophrenic angle which may represent scarring versus small pleural effusion. Otherwise unremarkable exam. Alberta Zurita MD Objective Remarks General: NAD, AAOx3 Chest: Good air entry bilaterally Cardiac: Regular Abd: +BS, soft ND/NT Ext: No edema A/P Problem List: (1) DKA (diabetic ketoacidoses) Status: Acute Plan: - Pt admitted in DKA with nausea/vomiting. - Blood glucose in the ED was 536 and has been started on Insulin gtt and electrolyte protocol - Pt to be admitted to [facility] [place] for close monitoring - It is unclear if the pt is still on Decadron as she was on a tapering dose in August per outpt records - DKA resolving and insulin gtt stopped on 09/14 - Pt was resumed on Levemir and SSI on 09/14 - Cont. diabetic diet. - Blood sugars low last night and this morning, stop Levemir 10units QHS for now and monitor - Pt was in respiratory distress on 09/14 secondary to fluid overload. This is improving with iv diuresis with Lasix 20mg IV BID and pt has catheter in place. - UOP is good but pt complaining about pelvic/bladder pressure since catheter placed and wants it removed. - Monitor bmp - Stable to transfer to med/surg today - Pt is on 3L NC currently, BiPAP PRN - Pt is a DNR - DVT prophylaxis (2) HTN (hypertension) Status: Chronic Plan: - Cont. Procardia 60mg po daily and Cozaar 50mg Q12H - Clonidine and Vasotec PRN (3) Metastatic cancer to brain Status: Chronic Plan: - SSC of the lung, originally diagnosed in 2012 s/p left upper lobectomy with mediastinal and hilar lymph node sampling. Subsequently received systemic chemo. In September 2015 pt was found to have a hypermetabolic pulmonary nodule which was treated with SBRT. In 06/2016 she was found to have a solitary brain mass in the left frontal lobe and was treated with external beam RT in 07/2016. Pt had been on Decadron for the vasogenic edema. - Pt follows with Dr. Palomino as an outpt (4) DM2 (diabetes mellitus, type 2) Status: Chronic Plan: - See above. (5) COPD (chronic obstructive pulmonary disease) Status: Chronic Plan: - Cont. 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 Assessment and Plan Patient examined. Assessment and plan formulated with Lawanda Roldan PA-C. I agree with the above. Problem Qualifiers (1) DKA (diabetic ketoacidoses): Qualified Code: E13.10 - Diabetic ketoacidosis without coma associated with type 2 diabetes mellitus Lawanda Roldan Sep 16, 2016 12:10 Aram Anderson DO Sep 19, 2016 06:45
--- NOTE | 2016-09-16 14:09 | RADRPT ---
EXAM DATE/TIME: 09/16/2016 12:48 [facility] COMPARISON: CHEST SINGLE AP, September 14, 2016, 8:55. INDICATIONS : CHF MEDICAL HISTORY : Diabetes mellitus type II. Diverticulitis. Carcinoma, lung. SURGICAL HISTORY : Lobectomy. ENCOUNTER: Subsequent ACUITY: 1 week PAIN SCORE: 0/10 LOCATION: Chest FINDINGS: The lungs are better aerated. The heart is enlarged. There is minimal blunting of the left costophr enic sulcus. The right lung is reasonably clear. CONCLUSION: Interval improvement, less interstitial edema. Edmond Garcia MD FACR on September 16, 2016 at 13:57 Board Certified Radiologist. This report was verified electronically.
[2016-09-16] MEDS: ALPRAZolam 0.25 MG TAB PO PRN (21:10)
[2016-09-17] VITALS (12 sets, daily range): BP systolic 136–188; BP diastolic 57–83; PULSE 84–99; RESP 16–27; TEMP 96.7–98.5; O2SAT 92–100
[2016-09-17] MEDS: INSULIN ASPART SUPPLEMENTAL SCALE SQ SCH ×6 (04:40→21:11)
[2016-09-17 07:30] LABS: AUTOMATED NEUTROPHIL # 4.2 TH/MM3 (1.8-7.7); BASOPHIL # 0.1 TH/MM3 (0-0.2); BASOPHIL % 1.2 % (0.0-2.0); BICARBONATE 35.7 MEQ/L (21.0-32.0); EOSINOPHIL # 0.4 TH/MM3 (0-0.4); EOSINOPHIL % 5.7 % (0.0-4.0); HEMATOCRIT 34.5 % (35.0-46.0); HEMO FLAGS DIFF FINAL; LYMPH % 22.1 % (9.0-44.0); LYMPHOCYTE # 1.5 TH/MM3 (1.0-4.8); MAGNESIUM 1.8 MG/DL (1.5-2.5); MEAN CELL VOLUME 91.9 FL (80.0-100.0); MEAN CORPUSCULAR HEMOGLOBIN 30.7 PG (27.0-34.0); MEAN CORPUSCULAR HGB CONC 33.4 % (32.0-36.0); MONO % 10.8 % (0.0-8.0); NEUT % 60.2 % (16.0-70.0); PLATELET COUNT 347 TH/MM3 (150-450); POTASSIUM 3.5 MEQ/L (3.5-5.1); RED BLOOD COUNT 3.76 MIL/MM3 (4.00-5.30); RED CELL DISTRIBUTION WIDTH 14.3 % (11.6-17.2)
[2016-09-17] MEDS: RESP: ALBUTEROL 2.5 MG/IPRATROPIUM 0.5 MG NEB (SCH) NEB ×4 (07:50→20:32)
[2016-09-17] MEDS ORDERED: DEXTROSE 50% IN WATER 50 ML SYRINGE ONE (07:56)
[2016-09-17] MEDS: NIFEdipine 60 MG SUSTAINED RELEASE TAB PO SCH (08:47)
[2016-09-17] MEDS: levETIRAcetam 500 MG TAB PO SCH ×2 (08:47→21:10)
[2016-09-17] MEDS: LOSARTAN 50 MG TAB PO SCH ×2 (08:47→21:10)
[2016-09-17] MEDS: ASPIRIN EC 81 MG TABEC PO SCH (08:47)
[2016-09-17] MEDS: INSULIN DETEMIR 100 UNITS/ML VIAL SQ SCH (08:48)
[2016-09-17] MEDS: TIOTROPIUM BROMIDE 18 MCG INH INH SCH (08:55)
[2016-09-17] MEDS: BUDESONIDE-FORMOTEROL 160/4.5 MCG INHALER INH SCH ×2 (08:55→21:20)
--- NOTE | 2016-09-17 09:29 | HHI.PR ---
Subjective Remarks Pt blood sugars at 4Am were over 200 and pt was given SSI Repeat blood sugars at 7AM here blood glucose was 42 and pt was given OJ and 1amp of D50 with improvement Pt has been weaned down to 2L of supplemental O2 Awaiting medical floor bed. Objective Vitals Vital Signs Date Time Temp Pulse Resp B/P Pulse Ox O2 Delivery O2 Flow Rate FiO2 09/17/16 07:50 100 Nasal Cannula 2.00 09/17/16 06:00 88 09/17/16 04:00 98.5 84 24 175/74 94 09/17/16 04:00 84 09/17/16 02:00 88 09/17/16 00:00 98.4 91 27 188/76 94 09/17/16 00:00 91 09/16/16 22:00 96 09/16/16 20:33 93 Nasal Cannula 2.00 09/16/16 20:00 98.1 90 28 178/71 96 09/16/16 20:00 90 09/16/16 18:00 100 09/16/16 16:00 99 09/16/16 16:00 98.0 99 24 139/85 96 09/16/16 14:00 94 09/16/16 12:00 84 09/16/16 12:00 98.0 96 20 156/67 94 09/16/16 10:00 86 09/16/16 09/16/16 09/17/16 15:00 23:00 07:00 Intake Total 400 ml 500 ml Output Total 1450 ml 0 ml Balance -1050 ml 500 ml 0 ml Intake Oral 400 ml 500 ml IV Total 0 ml 0 ml Output Urine Total 1450 ml Stool Total 0 ml # Voids 2 1 # Bowel Movements 1 1 Result Diagram: 09/17/16 0635 09/17/16 0635 Other Results Laboratory Tests Test 09/16/16 09/17/16 06:24 06:35 Sodium Level 142 MEQ/L 140 MEQ/L Potassium Level 4.0 MEQ/L 3.5 MEQ/L Chloride Level 99 MEQ/L 96 MEQ/L Carbon Dioxide Level 37.5 MEQ/L 35.7 MEQ/L Anion Gap 6 MEQ/L 8 MEQ/L Blood Urea Nitrogen 16 MG/DL 19 MG/DL Creatinine 0.68 MG/DL 0.72 MG/DL Estimat Glomerular Filtration 84 ML/MIN 79 ML/MIN Rate Random Glucose 69 MG/DL 76 MG/DL Calcium Level 9.4 MG/DL 9.7 MG/DL White Blood Count 7.0 TH/MM3 Red Blood Count 3.76 MIL/MM3 Hemoglobin 11.6 GM/DL Hematocrit 34.5 % Mean Corpuscular Volume 91.9 FL Mean Corpuscular Hemoglobin 30.7 PG Mean Corpuscular Hemoglobin 33.4 % Concent Red Cell Distribution Width 14.3 % Platelet Count 347 TH/MM3 Mean Platelet Volume 8.4 FL Neutrophils (%) (Auto) 60.2 % Lymphocytes (%) (Auto) 22.1 % Monocytes (%) (Auto) 10.8 % Eosinophils (%) (Auto) 5.7 % Basophils (%) (Auto) 1.2 % Neutrophils # (Auto) 4.2 TH/MM3 Lymphocytes # (Auto) 1.5 TH/MM3 Monocytes # (Auto) 0.8 TH/MM3 Eosinophils # (Auto) 0.4 TH/MM3 Basophils # (Auto) 0.1 TH/MM3 CBC Comment DIFF FINAL Differential Comment Magnesium Level 1.8 MG/DL Imaging Last Impressions Chest X-Ray 09/14/16 0000 Signed Impressions: Service Date/Time: Wednesday, September 14, 2016 08:55 - CONCLUSION: Bilateral pleural effusions left greater than right clearly larger than on the previous days film Francis Frey MD Last Impressions Chest X-Ray 09/13/16 1128 Signed Impressions: Service Date/Time: Tuesday, September 13, 2016 11:37 - CONCLUSION: Blunting of the left costophrenic angle which may represent scarring versus small pleural effusion. Otherwise unremarkable exam. Alberta Zurita MD Objective Remarks General: NAD, AAOx3 Chest: Good air entry bilaterally Cardiac: Regular Abd: +BS, soft ND/NT Ext: No edema A/P Problem List: (1) DKA (diabetic ketoacidoses) Status: Acute Plan: - Pt admitted in DKA with nausea/vomiting. - Blood glucose in the ED was 536 and has been started on Insulin gtt and electrolyte protocol - Pt to be admitted to [facility] [place] for close monitoring - It is unclear if the pt is still on Decadron as she was on a tapering dose in August per outpt records - DKA resolving and insulin gtt stopped on 09/14 - Pt was resumed on Levemir and SSI on 09/14 - Cont. diabetic diet. - Levemir 10units QHS was stopped on 09/16 due to morning hypoglycemia - Blood sugars low this morning, 42 and pt was given juice and an amp of D50 with improvement. - Pt had been given 10 units of insulin at 4AM, change SSI to medium dose scale. - Pt was in respiratory distress on 09/14 secondary to fluid overload. This is improving with iv diuresis with Lasix 20mg IV BID and pt has catheter in place. - Renal function is stable. - UOP is good - Catheter removed on 09/16 - Monitor bmp - Stable to transfer to med/surg today - Pt is on 2L NC currently, BiPAP PRN - Pt is a DNR - DVT prophylaxis (2) HTN (hypertension) Status: Chronic Plan: - Cont. Procardia 60mg po daily and Cozaar 50mg Q12H - Clonidine and Vasotec PRN (3) Metastatic cancer to brain Status: Chronic Plan: - SSC of the lung, originally diagnosed in 2012 s/p left upper lobectomy with mediastinal and hilar lymph node sampling. Subsequently received systemic chemo. In September 2015 pt was found to have a hypermetabolic pulmonary nodule which was treated with SBRT. In 06/2016 she was found to have a solitary brain mass in the left frontal lobe and was treated with external beam RT in 07/2016. Pt had been on Decadron for the vasogenic edema. - Pt follows with Dr. Palomino as an outpt (4) DM2 (diabetes mellitus, type 2) Status: Chronic Plan: - See above. (5) COPD (chronic obstructive pulmonary disease) Status: Chronic Plan: - Cont. 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 Assessment and Plan Patient examined. Assessment and plan formulated with Lawanda Roldan PA-C. I agree with the above. Problem Qualifiers (1) DKA (diabetic ketoacidoses): Qualified Code: E13.10 - Diabetic ketoacidosis without coma associated with type 2 diabetes mellitus Lawanda Roldan Sep 17, 2016 09:29 Aram Anderson DO Sep 19, 2016 06:46
[2016-09-17] MEDS: ALPRAZolam 0.25 MG TAB PO PRN (21:16)
[2016-09-18] VITALS (7 sets, daily range): BP systolic 142–166; BP diastolic 58–74; PULSE 85–95; RESP 16–20; TEMP 97–98.4; O2SAT 97–100
[2016-09-18] MEDS ORDERED: INSULIN ASPART 1,000 UNITS/10 ML VIAL SQ ONE (05:45)
[2016-09-18] MEDS: RESP: ALBUTEROL 2.5 MG/IPRATROPIUM 0.5 MG NEB (SCH) NEB (08:47)
[2016-09-18] MEDS: INSULIN DETEMIR 100 UNITS/ML VIAL SQ SCH (09:32)
[2016-09-18] MEDS: LOSARTAN 50 MG TAB PO SCH ×2 (09:33→20:08)
[2016-09-18] MEDS: levETIRAcetam 500 MG TAB PO SCH ×2 (09:33→20:08)
[2016-09-18] MEDS: NIFEdipine 60 MG SUSTAINED RELEASE TAB PO SCH (09:33)
[2016-09-18] MEDS: ASPIRIN EC 81 MG TABEC PO SCH (09:33)
[2016-09-18] MEDS: TIOTROPIUM BROMIDE 18 MCG INH INH SCH (09:34)
[2016-09-18] MEDS: BUDESONIDE-FORMOTEROL 160/4.5 MCG INHALER INH SCH ×2 (09:34→20:10)
--- NOTE | 2016-09-18 10:32 | HHI.PR ---
Subjective Remarks Pts morning blood sugar was extremely high today over 500 Pt was given NovoLog 15 units at 0530 this morning Blood sugar improved to 349 at 0700 Objective Vitals Vital Signs Date Time Temp Pulse Resp B/P Pulse Ox O2 Delivery O2 Flow Rate FiO2 09/18/16 08:47 98 Nasal Cannula 2.00 09/18/16 04:00 97.7 95 16 147/58 100 09/18/16 00:00 97.0 95 18 149/68 100 09/17/16 20:32 96 Nasal Cannula 2.00 09/17/16 20:00 98.2 99 18 157/69 98 09/17/16 16:00 98.1 88 16 155/83 99 09/17/16 12:34 97.3 86 18 152/57 100 09/17/16 10:45 96.7 86 20 154/62 97 09/17/16 09/17/16 09/18/16 15:00 23:00 07:00 Intake Total 1010 ml 240 ml Output Total 400 ml Balance 1010 ml -400 ml 240 ml Intake Oral 1010 ml 240 ml Output Urine Total 400 ml # Voids 1 3 # Bowel Movements 1 1 Result Diagram: 09/17/16 0635 09/18/16 0530 Other Results Laboratory Tests Test 09/17/16 09/18/16 06:35 05:30 White Blood Count 7.0 TH/MM3 Red Blood Count 3.76 MIL/MM3 Hemoglobin 11.6 GM/DL Hematocrit 34.5 % Mean Corpuscular Volume 91.9 FL Mean Corpuscular Hemoglobin 30.7 PG Mean Corpuscular Hemoglobin 33.4 % Concent Red Cell Distribution Width 14.3 % Platelet Count 347 TH/MM3 Mean Platelet Volume 8.4 FL Neutrophils (%) (Auto) 60.2 % Lymphocytes (%) (Auto) 22.1 % Monocytes (%) (Auto) 10.8 % Eosinophils (%) (Auto) 5.7 % Basophils (%) (Auto) 1.2 % Neutrophils # (Auto) 4.2 TH/MM3 Lymphocytes # (Auto) 1.5 TH/MM3 Monocytes # (Auto) 0.8 TH/MM3 Eosinophils # (Auto) 0.4 TH/MM3 Basophils # (Auto) 0.1 TH/MM3 CBC Comment DIFF FINAL Differential Comment Sodium Level 140 MEQ/L Potassium Level 3.5 MEQ/L Chloride Level 96 MEQ/L Carbon Dioxide Level 35.7 MEQ/L Anion Gap 8 MEQ/L Blood Urea Nitrogen 19 MG/DL Creatinine 0.72 MG/DL Estimat Glomerular Filtration 79 ML/MIN Rate Random Glucose 76 MG/DL 507 MG/DL Calcium Level 9.7 MG/DL Magnesium Level 1.8 MG/DL Imaging Last Impressions Chest X-Ray 09/14/16 0000 Signed Impressions: Service Date/Time: Wednesday, September 14, 2016 08:55 - CONCLUSION: Bilateral pleural effusions left greater than right clearly larger than on the previous days film Francis Frey MD Last Impressions Chest X-Ray 09/13/16 1128 Signed Impressions: Service Date/Time: Tuesday, September 13, 2016 11:37 - CONCLUSION: Blunting of the left costophrenic angle which may represent scarring versus small pleural effusion. Otherwise unremarkable exam. Alberta Zurita MD Objective Remarks General: NAD, AAOx3 Chest: Good air entry bilaterally Cardiac: Regular Abd: +BS, soft ND/NT Ext: No edema A/P Problem List: (1) DKA (diabetic ketoacidoses) Status: Acute Plan: - Pt admitted in DKA with nausea/vomiting. - Blood glucose in the ED was 536 and has been started on Insulin gtt and electrolyte protocol - [facility] - It is unclear if the pt is still on Decadron as she was on a tapering dose in August per outpt records - DKA resolving and insulin gtt stopped on 09/14 - Pt was resumed on Levemir and SSI on 09/14 - Cont. diabetic diet. - Levemir 10units QHS was stopped on 09/16 due to morning hypoglycemia - Pts blood sugars remained low in the morning on 09/17 and the SSI dose was changed to medium dose scale and her morning dose of Levemir was decreased to 20 units. - This morning pts blood sugar was over 500. - Pt was given 15 units of NovoLog SSI insulin at 530AM, repeat blood sugar at 0700 was 349 - We will see how her blood sugars are this afternoon and may need to add back on a small dose of nighttime Levemir, 5 units - Pt was in respiratory distress on 09/14 secondary to fluid overload. This is improved with iv diuresis with Lasix 20mg IV BID which was stopped on 09/16 - Renal function is stable. - UOP is good - Catheter removed on 09/16 - Monitor bmp - Pt is on 2L NC currently which she is on at home normally, BiPAP PRN - Pt is a DNR - DVT prophylaxis (2) HTN (hypertension) Status: Chronic Plan: - Cont. Procardia 60mg po daily and Cozaar 50mg Q12H - Clonidine and Vasotec PRN (3) Metastatic cancer to brain Status: Chronic Plan: - SSC of the lung, originally diagnosed in 2012 s/p left upper lobectomy with mediastinal and hilar lymph node sampling. Subsequently received systemic chemo. In September 2015 pt was found to have a hypermetabolic pulmonary nodule which was treated with SBRT. In 06/2016 she was found to have a solitary brain mass in the left frontal lobe and was treated with external beam RT in 07/2016. Pt had been on Decadron for the vasogenic edema. - Pt follows with Dr. Palomino as an outpt (4) DM2 (diabetes mellitus, type 2) Status: Chronic Plan: - See above. (5) COPD (chronic obstructive pulmonary disease) Status: Chronic Plan: - Cont. 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 Assessment and Plan Patient examined. Assessment and plan formulated with Lawanda Roldan PA-C. I agree with the above. Problem Qualifiers (1) DKA (diabetic ketoacidoses): Qualified Code: E13.10 - Diabetic ketoacidosis without coma associated with type 2 diabetes mellitus Lawanda Roldan Sep 18, 2016 10:31 Aram Anderson DO Sep 19, 2016 06:46
[2016-09-18] MEDS: INSULIN ASPART SUPPLEMENTAL SCALE SQ SCH ×3 (12:47→20:08)
[2016-09-18] MEDS: ALPRAZolam 0.25 MG TAB PO PRN (20:15)
[2016-09-19] VITALS: BP 164/78; PULSE 87; RESP 16; TEMP 96.5; O2SAT 97
[2016-09-19 04:00] VITALS: BP 149/67; PULSE 81; RESP 16; TEMP 96.7; O2SAT 97
[2016-09-19] MEDS: INSULIN ASPART SUPPLEMENTAL SCALE SQ SCH ×4 (06:31→20:21)
[2016-09-19 08:00] VITALS: BP 122/97; PULSE 85; RESP 20; TEMP 96.8; O2SAT 99
[2016-09-19] MEDS: NIFEdipine 60 MG SUSTAINED RELEASE TAB PO SCH (08:10)
[2016-09-19] MEDS: levETIRAcetam 500 MG TAB PO SCH ×2 (08:10→20:21)
[2016-09-19] MEDS: INSULIN DETEMIR 100 UNITS/ML VIAL SQ SCH (08:10)
[2016-09-19] MEDS: TIOTROPIUM BROMIDE 18 MCG INH INH SCH (08:11)
[2016-09-19] MEDS: LOSARTAN 50 MG TAB PO SCH ×2 (08:11→20:21)
[2016-09-19] MEDS: ASPIRIN EC 81 MG TABEC PO SCH (08:11)
[2016-09-19] MEDS: BUDESONIDE-FORMOTEROL 160/4.5 MCG INHALER INH SCH ×2 (08:11→20:21)
--- NOTE | 2016-09-19 10:38 | HHI.PR ---
Subjective Remarks Pt states that she feels better today than she did yesterday. Blood sugar this morning was 275. Pt reports that she had a Glucerna around 2100 last night She feels that her breathing is stable. Afebrile. Objective Vitals Vital Signs Date Time Temp Pulse Resp B/P Pulse Ox O2 Delivery O2 Flow Rate FiO2 09/19/16 08:00 96.8 85 20 122/97 99 09/19/16 04:00 96.7 81 16 149/67 97 09/19/16 00:00 96.5 87 16 164/78 97 09/18/16 21:15 97 Nasal Cannula 2.00 09/18/16 20:00 98.4 85 16 142/74 98 09/18/16 15:00 98.0 93 20 146/64 99 09/18/16 12:00 97.8 90 20 166/71 98 09/18/16 09/18/16 09/19/16 15:00 23:00 07:00 Intake Total 720 ml 480 ml 100 ml Output Total 600 ml Balance 120 ml 480 ml 100 ml Intake Oral 720 ml 480 ml 100 ml Output Urine Total 600 ml # Voids 2 # Bowel Movements 2 Result Diagram: 09/17/16 0635 09/18/16 0530 Imaging Last Impressions Chest X-Ray 09/14/16 0000 Signed Impressions: Service Date/Time: Wednesday, September 14, 2016 08:55 - CONCLUSION: Bilateral pleural effusions left greater than right clearly larger than on the previous days film Francis Frey MD Last Impressions Chest X-Ray 09/13/16 1128 Signed Impressions: Service Date/Time: Tuesday, September 13, 2016 11:37 - CONCLUSION: Blunting of the left costophrenic angle which may represent scarring versus small pleural effusion. Otherwise unremarkable exam. Alberta Zurita MD Objective Remarks General: NAD, AAOx3 Chest: Good air entry bilaterally Cardiac: Regular Abd: +BS, soft ND/NT Ext: No edema A/P Problem List: (1) DKA (diabetic ketoacidoses) Status: Acute Plan: - Pt admitted in DKA with nausea/vomiting. - Blood glucose in the ED was 536 and has been started on Insulin gtt and electrolyte protocol - Pt to be admitted to [facility] for close monitoring - It is unclear if the pt is still on Decadron as she was on a tapering dose in August per outpt records - DKA resolving and insulin gtt stopped on 09/14 - Pt was resumed on Levemir and SSI on 09/14 - Cont. diabetic diet. - Levemir 10units QHS was stopped on 09/16 due to morning hypoglycemia - Pts blood sugars remained low in the morning on 09/17 and the SSI dose was changed to medium dose scale and her morning dose of Levemir was decreased to 20 units. - On 09/18 pts blood sugar was over 500. Pt notes that the night prior she had eaten some ice cream and gram crackers and peanut butter before bed. Pt was given 15 units of NovoLog SSI insulin at 530AM, repeat blood sugar at 0700 was 349 - Pts blood sugars this morning were 275. She had a Glucerna last night around 2100. - We will add on Levemir 5 units HS and monitor blood sugars overnight. - Pt was in respiratory distress on 09/14 secondary to fluid overload. This is improved with iv diuresis with Lasix 20mg IV BID which was stopped on 09/16 - Renal function is stable. - UOP is good - Catheter removed on 09/16 - Pts respiratory status is stable. - Pt is on 2L NC currently which she is on at home normally, BiPAP PRN - Pt is a DNR - If Blood sugars remain stable overnight anticipate discharge home in AM. - DVT prophylaxis (2) HTN (hypertension) Status: Chronic Plan: - Cont. Procardia 60mg po daily and Cozaar 50mg Q12H - Clonidine and Vasotec PRN (3) Metastatic cancer to brain Status: Chronic Plan: - SSC of the lung, originally diagnosed in 2012 s/p left upper lobectomy with mediastinal and hilar lymph node sampling. Subsequently received systemic chemo. In September 2015 pt was found to have a hypermetabolic pulmonary nodule which was treated with SBRT. In 06/2016 she was found to have a solitary brain mass in the left frontal lobe and was treated with external beam RT in 07/2016. Pt had been on Decadron for the vasogenic edema. - Pt follows with Dr. Palomino as an outpt (4) DM2 (diabetes mellitus, type 2) Status: Chronic Plan: - See above. (5) COPD (chronic obstructive pulmonary disease) Status: Chronic Plan: - Cont. 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 Assessment and Plan Patient examined. Assessment and plan formulated with Lawanda Roldan PA-C. I agree with the above. Problem Qualifiers (1) DKA (diabetic ketoacidoses): Qualified Code: E13.10 - Diabetic ketoacidosis without coma associated with type 2 diabetes mellitus Lawanda Roldan Sep 19, 2016 10:38 Aram Anderson DO Sep 27, 2016 19:16
[2016-09-19 12:00] VITALS: BP 174/79; PULSE 74; RESP 18; TEMP 98.1; O2SAT 98
[2016-09-19 16:00] VITALS: BP 141/84; PULSE 90; RESP 20; TEMP 96.9; O2SAT 99
[2016-09-19 20:00] VITALS: BP 179/74; PULSE 91; RESP 18; TEMP 98.2; O2SAT 96
[2016-09-19] MEDS: ALPRAZolam 0.25 MG TAB PO PRN (20:21)
[2016-09-19] MEDS ORDERED: INSULIN DETEMIR 100 UNITS/ML VIAL SQ SCH (21:00)
[2016-09-20] VITALS: BP 164/74; PULSE 16; RESP 16; TEMP 97.1; O2SAT 97
[2016-09-20 04:00] VITALS: BP 194/80; PULSE 80; RESP 16; TEMP 96.9; O2SAT 100
[2016-09-20] MEDS: cloNIDine HCL 0.1 MG TAB PO PRN (04:16)
[2016-09-20] MEDS: INSULIN ASPART SUPPLEMENTAL SCALE SQ SCH ×3 (06:38→16:28)
[2016-09-20 08:00] VITALS: BP 137/64; PULSE 77; RESP 16; TEMP 96.4; O2SAT 99
[2016-09-20] MEDS: NIFEdipine 60 MG SUSTAINED RELEASE TAB PO SCH (09:15)
[2016-09-20] MEDS: levETIRAcetam 500 MG TAB PO SCH (09:16)
[2016-09-20] MEDS: LOSARTAN 50 MG TAB PO SCH (09:17)
[2016-09-20] MEDS: ASPIRIN EC 81 MG TABEC PO SCH (09:18)
[2016-09-20] MEDS: INSULIN DETEMIR 100 UNITS/ML VIAL SQ SCH (09:18)
[2016-09-20] MEDS: BUDESONIDE-FORMOTEROL 160/4.5 MCG INHALER INH SCH (09:20)
[2016-09-20 10:22] VITALS: O2SAT 96
[2016-09-20] MEDS ORDERED: LEVEMIR SQ ×2 (11:26)
--- NOTE | 2016-09-20 11:27 | HHI.DCPOC ---
Discharge Care Plan Diagnosis: (1) DKA (diabetic ketoacidoses) (2) DM2 (diabetes mellitus, type 2) (3) Squamous cell carcinoma of left lung (4) Metastatic cancer to brain (5) Anxiety (6) COPD (chronic obstructive pulmonary disease) (7) HTN (hypertension) Goals to Promote Your Health * To prevent worsening of your condition and complications * To maintain your health at the optimal level Directions to Meet Your Goals Take your medications as prescribed Follow your dietary instruction Follow activity as directed Keep your appointments as scheduled Take your immunizations and boosters as scheduled If your symptoms worsen call your PCP, if no PCP go to Urgent Care Center or Emergency Room Smoking is Dangerous to Your Health. Avoid second hand smoke Call the 24-hour hour crisis hotline for domestic abuse at Lawanda Roldan Sep 20, 2016 11:27 Aram Anderson DO Sep 27, 2016 19:16
--- NOTE | 2016-09-20 11:34 | HHI.DS ---
Discharge Summary Admission Date Sep 13, 2016 at 13:13 Discharge Date: Sep 20, 2016 Admitting Diagnosis DKA, hyperglycemia (1) DKA (diabetic ketoacidoses) Diagnosis: Principal (2) HTN (hypertension) Diagnosis: Secondary (3) Metastatic cancer to brain Diagnosis: Secondary (4) DM2 (diabetes mellitus, type 2) Diagnosis: Secondary (5) COPD (chronic obstructive pulmonary disease) Diagnosis: Secondary (6) Anxiety Diagnosis: Secondary (7) Squamous cell carcinoma of left lung Diagnosis: Secondary Brief History Ms. Thomas is a pleasant 76 y/o WF with hx of SCC of the lung s/p surgery/ chemo who was found to have new pulmonary and brain lesions in 2016 s/p XRT, diabetes mellitus, and HTN who presented to the ED at [facility] on 09/13/16 with hyperglycemia. Patient has had DKA in the past which was attributed to steroid use. She states that she has been feeling weak and tired and yesterday her blood sugars were as high as 500s. Patient has been taking her insulin with minimal improvement of the sugars, Levemir 35units in AM and 15 units in PM and NovoLog SSI. This morning she started having nausea and vomiting with increased weakness and feeling unsteady on her feet. She states that has polyuria and urinary incontinence. She denies any diarrhea, fever/chills, or respiratory symptoms. Pts blood sugars at admission were int he 500's and pt has been started on the insulin gtt and protocol and will be admitted to [facility] [place]. CBC/BMP: 09/17/16 0635 09/18/16 0530 Significant Findings Laboratory Tests Test 09/18/16 05:30 Random Glucose 507 MG/DL (74-106) Imaging Last Impressions Chest X-Ray 09/16/16 0000 Signed Impressions: Service Date/Time: Friday, September 16, 2016 12:48 - CONCLUSION: Interval improvement, less interstitial edema. Edmond Garcia MD FACR PE at Discharge General: NAD, AAOx3 Chest: Good air entry bilaterally Cardiac: Regular Abd: +BS, soft ND/NT Ext: No edema Hospital Course DKA (diabetic ketoacidoses) Pt admitted in DKA with nausea/vomiting. Blood glucose in the ED was 536 and has been started on Insulin gtt and electrolyte protocol. Pt was admitted to [facility] [place] for close monitoring. It is unclear if the pt is still on Decadron as she was on a tapering dose in August per outpt records and the pt is unclear if she had stopped this or not. DKA resolved and insulin gtt stopped on 09/14. Pt was resumed on Levemir 35 units daily and 10 units QHS and SSI on 09/14. Levemir 10units QHS was stopped on 09/16 due to morning hypoglycemia. Pts blood sugars remained low in the morning on 09/17 and the SSI dose was changed to medium dose scale and her morning dose of Levemir was decreased to 20 units. On 09/18 pts blood sugar was over 500. Pt notes that the night prior she had eaten some ice cream and gram crackers and peanut butter before bed. Pt was given 15 units of NovoLog SSI insulin at 530AM, repeat blood sugar at 0700 was 349. Pts blood sugars on 09/19 were 275. She had a Glucerna last night around 2100. Levemir 5 units HS was added back on 09/19 along with her Levemir 20 units daily and her blood sugars remained stable overnight. This will be her dosing of Levemir upon discharge. She will hold her Tradjenta at discharge as well. Pt developed respiratory distress on 09/14 secondary to fluid overload. This improved with iv diuresis with Lasix 20mg IV BID which was stopped on 09/16. Renal function remained stable and good UOP. Catheter removed on 09/16. Respiratory status remained stable. Pt is on 2L NC currently which she is on at home normally. Pt to be discharged to SNF for continued rehab efforts Pt will need to followup with her PCP, Dr. Argueta, next week with close monitoring of her blood sugars. Pt will need to followup with Dr. Palomino, her oncologist, as well in 1-2 weeks. Pt Condition on Discharge: Stable Discharge Disposition: Discharge to SNF Discharge Instructions DIET: Follow Instructions for: Diabetic Diet Activities you can perform: Regular-No Restrictions Follow up Referrals: PCP Follow-up - [address] Argueta Changed Medications: Insulin Detemir Inj (Levemir Inj) 1,000 unit/ 10 ML Vial 20 UNITS SQ DAILY Do not mix with any other Insulin. Blood Sugar Management #1 Ref 1 VIAL (Changed from: 35 UNITS; Refills: 0) Insulin Detemir Inj (Levemir Inj) 1,000 unit/ 10 ML Vial 5 UNITS SQ HS Do not mix with any other Insulin. Blood Sugar Management #1 Ref 0 VIAL (Changed from: 15 UNITS) Continued Medications: Albuterol 18 GM Inh (Ventolin Hfa 18 GM Inh) 90 Mcg/Act Aer 1 PUFF INH Q4H PRN SHORTNESS OF BREATH #1 Ref 0 INHALER Alprazolam (Xanax) 0.25 Mg Tab 0.25 MG PO BID PRN anxiety #[address] (Aspir-81) 81 Mg Tabdr 81 MG PO DAILY Budesonide-Formoterol Inh (Symbicort Inh) 160-4.5 Mcg/Act Aero 2 PUFF INH Q12HR #1 Ref 0 INHALER Calcium Carbonate-Cholecalciferol (Calcium 500+D) 500-200 Mg-Unit Tab 1 TAB PO BID TAB Cholecalciferol (Vitamin D3) 2,000 Unit Tab 2000 UNITS PO DAILY Nutritional Supplement #1 Ref 0 BOTTLE Coenzyme Q10 (Ubidecarenone) (Coq-10) 100 Mg Cap 100 MG PO DAILY Insulin Aspart Inj (Novolog Inj) 1,000 Unit/10 Ml Vial 5-10 UNITS SQ TIDAC Sliding scale. Max dose at bedtime:( )units; sugars less than 70,(0) units; sugars 150-199,(5) units; sugars 200-249,(10) units; sugars 250-299,(15) units; sugars 300-349,(20)units; sugars greater than 349,(25)units Blood Sugar Management #10 Ref 0 ML Levetiracetam (Keppra) 500 Mg Tab 500 MG PO Q12HR Control Seizures #60 Ref 0 TAB Losartan (Losartan) 50 Mg Tab 50 MG PO BID Blood Pressure Management #30 Ref 0 TAB Nifedipine ER 24 HR (Procardia XL) 60 Mg Tab 60 MG PO DAILY #30 Ref 0 TAB Tiotropium Inh (Spiriva Handihaler) 18 Mcg Cap 18 MCG INH DAILY 1 capsule = 18 mcg COPD #30 Ref 0 CAP Discontinued Medications: Linagliptin (Tradjenta) 5 Mg Tab 5 MG PO DAILY Blood Sugar Management #30 Ref 0 TAB Additional Information Patient examined. Assessment and plan formulated with Lawanda Roldan PA-C. I agree with the above. Lawanda Roldan Sep 20, 2016 11:34 Arma Anderson DO Sep 27, 2016 19:16
[2016-09-20 12:00] VITALS: BP 140/61; PULSE 83; RESP 16; TEMP 96.2; O2SAT 99
[2016-09-20] MEDS ORDERED: ALPR.25 PO (13:04)
[2016-09-20] MEDS: TIOTROPIUM BROMIDE 18 MCG INH INH SCH (14:50)
[2016-09-20 16:00] VITALS: BP 138/61; PULSE 80; RESP 16; TEMP 96.3; O2SAT 99
== END 2016-09-20 18:07 | DRG 638 ==
LOC: NEPC 11:16 → NEDA 13:13 → HIMN 17:10 → HIMW 09-17 05:40 → HOCA 09-17 10:48
PROVIDERS: ADMIT Hospitalist; ATTEND Hospitalist
DX: E13.10 Other specified diabetes mellitus with ketoacidosis without coma (principal); C79.31 Secondary malignant neoplasm of brain; J44.9 Chronic obstructive pulmonary disease, unspecified; C34.12 Malignant neoplasm of upper lobe, left bronchus or lung; E87.70 Fluid overload, unspecified; R06.02 Shortness of breath; F41.9 Anxiety disorder, unspecified; I10 Essential (primary) hypertension; Z87.891 Personal history of nicotine dependence; Z79.82 Long term (current) use of aspirin; Z79.4 Long term (current) use of insulin; Z92.21 Personal history of antineoplastic chemotherapy; Z92.3 Personal history of irradiation; Z66 Do not resuscitate; Z90.2 Acquired absence of lung [part of]
CPT/HCPCS: 71010; 80048; 80053; 81001; 82010; 82550; 82805; 82947; 82948; 83036; 83605; 83690; 83735; 84100; 84132; 84443; 84484; 85025; 87077; 87086; 87186; 93005; 94640; 94664; 96372; 96374; J1815; J1817; J1940; J2405; J3480; J7030; J7042; J7050; P9612